=== PATIENT | female | born 1955 | race Two or more races ===

== ENCOUNTER 2018-07-23 11:55 | Outpatient (CLI) | payer OTHER | END 2018-07-23 14:09 | disposition home or self-care (01) | LOC: SONOGRAMA 11:55 | DX: M25.572 Pain in left ankle and joints of left foot (principal); M25.561 Pain in right knee; M25.562 Pain in left knee ==

== ENCOUNTER 2018-10-13 08:14 | Outpatient (CLI) | payer OTHER | END 2018-10-13 08:22 | disposition home or self-care (01) | LOC: RAD 08:14 | DX: N20.1 Calculus of ureter (principal) ==

== ENCOUNTER 2018-10-13 08:24 | Outpatient (CLI) | payer OTHER | END 2018-10-13 10:31 | disposition home or self-care (01) | LOC: SONOGRAMA 08:24 | DX: R22.2 Localized swelling, mass and lump, trunk (principal) ==

== ENCOUNTER 2019-01-07 09:45 | Outpatient (CLI) | payer OTHER ==
[2019-01-07] MEDS ORDERED: COZAAR100 MG (12:56)
== END 2019-01-07 09:51 | disposition home or self-care (01) ==
LOC: MRI 09:45
DX: M51.26 Other intervertebral disc displacement, lumbar region (principal); M51.36 Other intervertebral disc degeneration, lumbar region
CPT/HCPCS: 72148

== ENCOUNTER 2019-01-07 12:45 | Emergency (ER) | payer OTHER ==
[~2019-01-07] VITALS: Ht 162.6 cm; Wt 86.2 kg
[2019-01-07] MEDS ORDERED: COZAAR100 MG (12:56)
== END 2019-01-08 10:44 | disposition home or self-care (01) ==
LOC: ER 12:45 → CPU-OBS 12:51
DX: R07.89 Other chest pain (principal); I10 Essential (primary) hypertension; I20.9 Angina pectoris, unspecified
CPT/HCPCS: G0378; G0379; 93005

== ENCOUNTER → 2019-01-09 | Outpatient (CLI) | payer OTHER ==
[~2019-01-09] MED LIST: COZAAR100 MG
== END | disposition home or self-care (01) ==
LOC: NUCLEAR 07:00
DX: R07.89 Other chest pain (principal); R94.31 Abnormal electrocardiogram [ECG] [EKG]; I10 Essential (primary) hypertension
CPT/HCPCS: 78452; 93017; A9500; J0153